=== PATIENT | female | born 1945 | race Caucasian/White ===

== ENCOUNTER 2024-05-12 15:26 | Emergency (ER) | payer MEDICARE, OTHER, SELFPAY ==
--- OUTSIDE RECORDS SUMMARY | 2024-05-12 15:36 | XMS_ITS | Clinical Summary ---
Author Organization [facility] Address [address] [place] [address] Care Team Providers Care Special Education Paraprofessional Name Role Phone Faith Rubio MD Primary Care Provider [phone] Salvador Merida MD Unavailable [phone] Tevin Pat MD Unavailable + Yang Murphy Unavailable Unavail Jorgito Luque MD Unavailable [phone] Allergies Active Allergy Reactions Criticality Noted Date Comments Bacitracin Blisters High Gramicidin D Blisters High Neomycin Blisters High Hyxkvajs-Qnzijsfebw-Lj lymyxin Blisters High Reaction: BLISTERS, Polymyxin B Blisters High Semaglutide Nausea & Vomiting Low 02/05/2024 Would be a candidate for injected semaglutide or Mounjaro in the future if affordable Medications cyanocobalamin (Vitamin B-12) 1,000 mcg tabletIndications: Type 2 diabetes mellitus with microalbuminuria, without long-term current use of insulin (HCC) Take 1 tablet (1,000 mcg total) by mouth daily 4 Active cholecalciferol (VITAMIN D-3) 50,000 unit capsule Take 1 capsule (50,000 Units total) by mouth once a week Active atorvastatin (LIPITOR) 40 mg tabletIndications: Type 2 diabetes mellitus with microalbuminuria, without long-term current use of insulin (HCC),Multiple-typ e hyperlipidemia Take 1 tablet (40 mg total) by mouth daily 90 tablet 1 4 02/05/20 25 Active citalopram (CeleXA) 20 mg tabletIndications: Mood disorder Take 1 tablet (20 mg total) by mouth daily with breakfast 90 tablet 1 4 02/05/20 25 Active famotidine (PEPCID) 20 mg tabletIndications: gastroesophageal reflux disease Take 1 tablet (20 mg total) by mouth 2 (two) times a day 180 tablet 2 4 Active lisinopriL (PRINIVIL,ZESTRIL) 10 mg tabletIndications: Hypertension complicating diabetes (HCC) Take 1 tablet (10 mg total) by mouth daily 90 tablet 1 4 Active metFORMIN (GLUCOPHAGE) 500 mg tabletIndications: Type 2 diabetes mellitus with microalbuminuria, without long-term current use of insulin (HCC) Take 1 tablet (500 mg total) by mouth 2 (two) times a day with meals 180 tablet 2 4 02/05/20 25 Active carvediloL (COREG) 12.5 mg tabletIndications: Type 2 diabetes mellitus with microalbuminuria, without long-term current use of insulin (HCC),Hypertension complicating diabetes (HCC) Take 0.5-1 tablets (6.25-12.5 mg total) by mouth 2 (two) times a day with meals If blood pressure is below 110/70 cut back to half tablet twice daily otherwise continue 1 whole tablet twice daily 180 tablet 1 4 Active Active Problems Problem Noted Date Diagnosed Date Vitamin D deficiency 01/22/2024 Overview (01/22/2024): Vitamin-D level low January 17, 2024 =19 Low started on vitamin-D 3 protocol 50,000 weekly Osteoporosis, idiopathic 09/21/2023 Overview (09/21/2023): New Dx: August 2023 AP LUMBAR SPINE L1-L4:Total BMD is 0.785 g/cm2 T-score is -2.4 LEFT HIP:Total BMD is 0.743 g/cm2 T-score is -1.6 Femoral neck BMD is 0.550 g/cm2 T-score is -2.7 Lung nodule, solitary 06/15/2022 Overview (06/15/2022): 06/14/2022: Low-dose chest CT lung cancer screening (+) May 2022 with a single pulmonary nodule plan recheck six-month LUNG NODULES: 7 mm pleural medial right upper lobe nodule (84). 3 mm pleural right middle lobe nodule (189). 3 mm posterior right lower lobe nodule (162). 4 mm minor fissure nodule (124). Small cluster of nodules within the anterior left upper lobe with largest nodule measuring 4 mm (86). 4 mm central left upper lobe nodule (18). 4 mm left lower lobe nodule (142). Multiple other smaller nodules are also noted bilaterally. OTHER: Minimal atelectasis or scarring within the lingula. No pleural effusion or pneumothorax. No mediastinal or hilar lymphadenopathy. The heart is normal in size with moderate coronary calcification. Ectasia of the ascending aorta measuring 3.8 cm. No axillary lymphadenopathy. No chest wall mass is seen. Images of the upper abdomen demonstrate a tiny hiatal hernia. Bone windows demonstrate no suspicious lytic or sclerotic lesion. No acute fracture seen. IMPRESSION: 1. Pulmonary nodules measuring up to 7 mm. Lung-RADS v1.1 category 3: Probably benign. Recommendation: Low dose CT of chest in 6 months. 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 Arthritis 04/30/2017 Class 1 obesity with serious comorbidity and body mass index (BMI) of 34.0 to 34.9 in adult 11/01/2016 Mood disorder 07/13/2013 Overview (06/01/2016): Adjustment reaction with anxiety and depression Assessment & Plan (03/14/2023 3:20 PM BARREL ENDSHAKE ADJUSTER): Controlled on current doses of Wellbutrin and Citalopram. No acute findings on exam. Refills sent. Type 2 diabetes mellitus wit h microalbuminuria, without long-term current use of insulin 07/13/2013 Overview (06/03/2016): Diabetes Assessment & Plan (03/15/2023 8:11 AM BARREL ENDSHAKE ADJUSTER): Last HbA1c in April was 6.8, recent fasting sugar on labs 2 weeks ago was 150. Up 10 lbs in last 9 months. No acute symptoms or findings on exam. Check HbA1c today. Will refill Metformin 500mg BID. Discussed low carb diet in detail. Educated on AHA recommendations for heart healthy exercise. Keep follow up and repeat labs in 5 months. Hypertension complicating diabetes 07/13/2013 Overview (06/03/2016): Benign essential hypertension Assessment & Plan (03/14/2023 3:23 PM BARREL ENDSHAKE ADJUSTER): BP stable in office today on current therapy. No acute findings on exam. Continue current regimen and low salt diet. 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 Overview (06/03/2016): Combined hyperlipidemia Assessment & Plan (03/14/2023 3:24 PM BARREL ENDSHAKE ADJUSTER): Last LDL 2 weeks ago was WNL, taking atorvastatin as rxd. Will refill in office today. Patel's esophagus 07/13/2013 Overview (12/14/2020): Barretts esophagus found on EGD with Dr. Murphy 2000, (-) EGD Dr. Harper 2015, (-) EGD Dr. Chávez 2020 Prilosec discontinued 12/14/2020 for p.r.n. use Pepcid Hearing loss 11/28/2011 Overview (06/03/2016): Hearing loss Resolved Problems Problem Noted Date Diagnosed Date Resolved Date Screening for colon cancer 05/08/2017 1 Overview (05/08/2017): Added automatically from request for surgery [id number] Immunizations Immunization Administration Dates Next Due Influenza, Quadrivalent, Hig h Dose, Preservative Free, Intrr 12/06/2019 Influenza, Quadrivalent, Spl it, Intramuscular 05/03/2016 Influenza, Quadrivalent, Spl it, Preservative Free, Intramuscular 02/09/2021 Influenza, Split 03/15/2013 Influenza, Trivalent, High D ose, Split, Preservative Free, Intramuscular 02/05/2024,11/21/2018,02/12/2018 Influenza, Trivalent, IM (MDV) 03/13/2014,2013 [place] (J&J) SARS-CoV-2 Vaccination 05/02/2020 Pneumococcal Conjugate PCV 13 03/13/2014 Pneumococcal Polysaccharide PPV23 11/02/2016, Tdap 05/03/2016,10/20/2006 ZOSTER Recombinant 11/21/2018,07/18/2018 Surgical History Surgery Date Site/Laterality Comments TUBAL LIGATION 02/27/1974 - 02/26/1975 Bilateral tubal ligation CHOLECYSTECTOMY 02/27/1974 - 02/26/1975 Cholecystectomy OTHER SURGICAL HISTORY 02/27/2011 - 02/27/2012 Obesity (BMI 30.0-39.9): OTHER SURGICAL HISTORY 02/28/2012 - 02/26/2013 Tobacco use: TOTAL KNEE ARTHROPLASTY 02/28/2012 - 02/26/2013 Right COLONOSCOPY 02/27/2007 - 02/27/2008 COLONOSCOPY 05/25/2017 (-) Dr. Harper sigmoid diverticulosis found ESOPHAGOSCOPY / EGD 10/22/2013 (+) Patel's Dr. Murphy ESOPHAGOSCOPY / EGD 10/18/2016 (-) Patel's Dr. Harper GERD seen, due again in 2019 ESOPHAGOSCOPY / EGD 07/02/2020 (-) REIDEL, 2 cm HH, Bx (-), no further EGD for Patel's needed Medical History Medical History Date Comments Hx Other Medical Obesity (BMI 30 .0-39.9); Comments: Faith Rubio MD; Outcome: Resolved from Problem List Hx Other Medical Tobacco use; Co mments: Faith Rubio MD; Outcome: Resolved from Problem List Anxiety Obesity Tobacco abuse 1/2 -2 ppd since age 17 Elevated cholesterol Hypertension Menopausal state 5 para 4 abortus 1 Metabolic syndrome Osteopenia Patel esophagus Colon polyp GERD (gastroesophageal reflux disease) Type 2 diabetes mellitus (HCC) Family History Medical History Relation Name Comments Heart attack Father Prostate cancer Father Breast cancer Mother Diabetes Mother Relation Name Status Comments Father Mother Social History Tobacco Use Types Packs/Day Years Used Date Smoking Tobacco: Every Day Cigarettes 1.5 65.2 Started: 1959 Smokeless Tobacco: Never Tobacco Cessation:Ready to Q uit: Not Asked; Counseling Given: Not Answered Alcohol Use Standard Drinks/Week Comments No 0 (1 standard drink = 0.6 oz pur e alcohol) PHQ-2 Answer Date Recorded PHQ-2 Total Score (If total score is 3 or more points, staff should administer the PHQ-9) 0 08/03/2023 Comments No Sex and Gender Information Value Date Recorded Sex Assigned at Not on file Legal Sex Female 4:42 PM BARREL ENDSHAKE ADJUSTER Gender Identity Not on file Sexual Orientation Not on file Occupation Industry Job Start Date Job End Date retired Not on file Not on file Not on file Obstetrics History Last Filed Vital Signs Vital Sign [place] Time Taken Comments Blood Pressure 118/72 02/05/2024 2:53 PM BARREL ENDSHAKE ADJUSTER Pulse 70 02/05/2024 2:53 PM BARREL ENDSHAKE ADJUSTER Temperature 36.5 C (97.7 F) 02/05/2024 1:56 PM BARREL ENDSHAKE ADJUSTER Respiratory Rate 16 02/05/2024 1:56 PM BARREL ENDSHAKE ADJUSTER Oxygen Saturation 94% 02/05/2024 1:56 PM BARREL ENDSHAKE ADJUSTER Inhaled Oxygen Concentration - - Weight 91.4 kg (201 lb 6.4 oz) 02/05/2024 1:56 P M BARREL [employer]SHAKE ADJUSTER Height 167.6 cm (5' 6 ) 02/05/2024 1:56 PM BARREL ENDSHAKE ADJUSTER Body Mass Index 32.51 02/05/2024 1:56 PM BARREL ENDSHAKE ADJUSTER Plan of Treatment Health Maintenance Due Date Last Done Comments Dilated Eye Exam 1945 Covid-19 Vaccine (2023-03 5 season) 2023 02/09/2021, 05/02/2020 Hemoglobin A1C 07/21/2024 01/22/2024, 06/29, 05/10/2022, Additional history exists Lipid Panel 07/26/2024 07/27/2023, 01/28, 04/19/2016, Additional history exists Depression Screening 08/02/2024 08/03/2023, 11/17/2021, 06/12/2020, Additional history exists Fall Risk Assessment 08/02/2024 08/03/2023, 11/17/2021, 07/02/2020, Additional history exists Foot Exam 08/02/2024 08/03/2023 Well Visit 65+ 08/02/2024 08/03/2023, 10/29, 06/12/2020, Additional history exists Lung Cancer Screening 09/21/2024 09/21/2023, 023 Albumin Creatinine Ratio, Urine 01/21/2025 01/22/2024, 07/27/2023, 02/22/2023, Additional history exists eGFR 01/21/2025 01/22/2024, 06/29, 02/22/2023, Additional history exists Osteoporosis Screening-Bone Density Scan 09/20/2025 09/21/2023 DTaP/Tdap/Td Vaccine (3 - Td or Tdap) 05/03/2026 05/03/2016, 10/20/2006 Hepatitis C Screening Completed 09/27/2016 Hepatitis B Screening Completed 10/01/2016 Pneumococcal vaccine 65+ Completed 017, 03/13/2014, 12/28/2011 Colon Cancer Screening-CT Colonography Discontinued 05/25/2017 Colon Cancer Screening-Colonoscopy Discontinued 05/25/2017 Colon Cancer Screening-DNA Stool Discontinued 05/26/19 18 Colon Cancer Screening-FIT Discontinued 05/25/2017 Colon Cancer Screening-FOBT Discontinued 05/25/2017 Colon Cancer Screening-Sigmoidoscopy Discontinued 05/25/2017 Colorectal Cancer Screening Discontinued Zoster Vaccine Completed 11/21/2018, 07/18/2018 Breast Cancer Screening-Mammogram Discontinued 09/21/2023, 05/18/2022, 12/07/2020, Additional history exists Influenza Vaccine Completed 02/05/2024, , 12/06/2019, Additional history exists Procedures Procedure Name Priority Date/Time Associated Diagnosis Comments EGFR Routine 01/22/2024 8:56 AM BARREL ENDSHAKE ADJUSTER Type 2 diabetes mellitus with microalbuminuria, without long-term current use of insulin (HCC) HEMOGLOBIN A1C Routine 01/22/2024 8:56 AM BARREL ENDSHAKE ADJUSTER Type 2 diabetes mellitus with microalbuminuria, without long-term current use of insulin (HCC) ALBUMIN CREATININE RATIO, URINE Routine 01/22/2024 8:56 AM BARREL ENDSHAKE ADJUSTER Type 2 diabetes mellitus with microalbuminuria, without long-term current use of insulin (HCC) CT LUNG CANCER SCREENING Schedule Routine, Read Routine (OP Routine) 09/21/2023 9:26 AM CDT Nicotine dependence, cigarettes, uncomplicated DEXA AXIAL SKELETON BONE DENSITY 1 OR MORE SITES Schedule Routine, Read Routine (OP Routine) 09/21/2023 9:10 AM CDT Menopause SCREENING MAMMOGRAM BILATERAL W DEREJE Schedule Routine, Read Routine (OP Routine) 09/21/2023 8:50 AM CDT Encounter for screening mammogram for breast cancer LIPID PANEL Routine 07/27/2023 8:40 AM CDT Type 2 diabetes mellitus with microalbuminuria, without long-term current use of insulin (HCC) Hypertension complicating diabetes (HCC) COLONOSCOPY 05/25/2017 11:14 AM CDT from Last 3 Months or Most Recently Relevant to Health Maintenance Results * eGFR (01/22/2024 8:56 AM BARREL ENDSHAKE ADJUSTER) eGFR 72 >=60 mL/min/1. 73 m2 Comment: Interpretive Data Reference Interval Normal >/= 90 mL/min/1.73m2 Mildly decreased* 60 - 89 mL/min/1.73m2 Mildly to moderately decreased 45 - 59 mL/min/1.73m2 Moderately to severely decreased 30 - 44 mL/min/1.73m2 Severely decreased 15 - 29 mL/min/1.73m2 Kidney Failure < 15 mL/min/1.73m2 *Relative to young adult level Estimated glomerular filtration rate is determined by the 2020 CKD-EPI equation recommended by the National Kidney Foundation (A Unifying Approach to GFR Estimation: Recommendations of the NKF-ASK Task Force on Reassessing the Inclusion of Race in Diagnosing Kidney Disease, JASN 2020). The CKD-EPI equation should not be used for patients with unstable renal function and has not been validated in children and those over 70. Current interpretive data was last reviewed 2020. Testing performed by: [facility], [address] [place] [address], [place]., [address] Blood 01/22/2024 8:56 AM BARREL ENDSHAKE ADJUSTER 01/22/2024 4:25 PM BARREL ENDSHAKE ADJUSTER us Faith Rubio MD LAB BLOOD ORDERABLES Final Result Performing Organization Address [facility] Co de Phone Number ERIKA [address] [facility] [place] [address] * (ABNORMAL) Albumin Creatinine Ratio, Urine (01/22/2024 8:56 AM BARREL ENDSHAKE ADJUSTER) Albumin Ur 232.5 mg/L Comment: Interpretive Data No reference range established. Current interpretive data was last revised 2018. Testing performed by: [facility], [address] [place] [address]., [address] Creatinine Ur 173.4 mg/dL ERIKA Comment: Interpretive Data No reference range established. Current interpretive data was last revised 2018. Testing performed by: [facility], [address] [place] [address]., [address] Albumin Creatinine Ratio, Ur 134(H) 1 - 29 mg/g ERIKA Comment:Testing performed by : [facility], [address] [place] [address]., [address] Urine 01/22/2024 8:56 AM BARREL ENDSHAKE ADJUSTER 01/22/2024 3:55 PM BARREL ENDSHAKE ADJUSTER us Faith Rubio MD LAB URINE ORDERABLES Final Result Performing Organization Address [facility] de Phone Number ERIKA [address] [facility] [place] [address] * (ABNORMAL) Hemoglobin A1c (01/22/2024 8:56 AM BARREL ENDSHAKE ADJUSTER) Hgb A1C 6.6(H) 4.0 - 5.6 % Comment:Testing performed by : [address] [address] Estimated Average Glucose 143 mg/dL ERIKA Comment: The ADA recommends reporting an estimated Average Glucose (eAG) with all Hemoglobin A1c results using the equation derived from a study of 507 normal and diabetic adults. Minority populations were underrepresented and children were not included. (Diabetes Care 31:6082-1148, 2008). The eAG is not equivalent to a fasting glucose. Testing performed by: [facility], [address] [place] [address], [place]., [address] Blood 01/22/2024 8:56 AM BARREL ENDSHAKE ADJUSTER 01/22/2024 3:53 PM BARREL ENDSHAKE ADJUSTER us Faith Rubio MD LAB BLOOD ORDERABLES Final Result Performing Organization Address City/State/[facility] Co de Phone Number ERIKA [address] [facility] [place] [address] * CT Lung Cancer Screening (09/21/2023 9:26 AM CDT) Anatomical Region Laterality Modality Chest N/A Computed Tomogra phy 09/21/2023 10:4 3 AM CDT Narrative 09/21/2023 10:59 AM CDT EXAM DESCRIPTION: CT LUNG CANCER SCREENING REASON FOR STUDY: Screening CT of the chest in a current smoker with a 90 pack year smoking history. Additional history: None. TECHNIQUE: Low dose CT scan of the chest was performed without intravenous contrast using helical scanning technique. The exam extends from the lung apices through the lung bases. Automatic exposure control was used as a dose optimization technique. NOTE: This study was performed for the specific purposes of lung cancer screening and is not an alternative to diagnostic chest CT. RADIATION DOSE: CT dose index volume (CTDIvol) = 2.47 mGy COMPARISON: 06/14/2022 FINDINGS: SMOKING RELATED LUNG DISEASE: There are mild emphysematous changes of lungs with scattered mild subsegmental atelectasis and scarring. There is mild biapical pleural thickening and scarring. There is no definite evidence of a pneumothorax. The central airways are grossly patent. There is no definite evidence of focal consolidation or pleural effusion. There are scattered calcified granulomas noted. LUNG NODULES: There is redemonstration of scattered pulmonary nodules, grossly similar to the prior study. For example, there is a stable subpleural 0.7 cm pulmonary nodule in the medial right upper lobe abutting the mediastinum (axial image 86). There is a grossly stable 0.4 cm fissural nodule along the right major fissure (axial image 130). There is a stable subpleural 0.3 cm right lower lobe pulmonary nodule (axial image 166). There is a stable subpleural 0.3 cm right middle lobe pulmonary nodule (axial image 183). There is stable 0.4 cm pulmonary nodule in the central left upper lobe (axial image 90). There is a grossly stable cluster of small pulmonary nodules in the anterior left upper lobe with the largest measuring 0.4 cm (axial image 91). There is a grossly stable 0.3 cm left lower lobe pulmonary nodule (axial image 171). CORONARY ARTERY CALCIFICATION: Present. OTHER: The heart size is normal. There is no definite evidence of a pericardial effusion. Mitral valve annular calcifications are noted. There are atherosclerotic changes of the thoracic aorta and coronary vessels. There is dilatation of main pulmonary artery measuring up to 4.1 cm, which is concerning for pulmonary arterial hypertension. There is no definite unenhanced CT evidence of mediastinal, hilar, or axillary lymphadenopathy. There are scattered subcentimeter mediastinal lymph nodes noted with largest measuring 0.7 cm in the paratracheal region (axial image 100). Calcified left hilar lymph nodes are noted. There is small hiatal hernia. The visualized portions of the bilateral adrenal glands are grossly stable and unremarkable. There are scattered colonic diverticula noted. There is mild osteopenia with degenerative changes of the spine. IMPRESSION: Redemonstration of scattered pulmonary nodules measuring up to 0.7 cm, grossly similar to the prior study. No definite evidence of a new suspicious pulmonary nodule. Mild emphysematous changes of lungs with scattered mild subsegmental atelectasis and scarring. Evidence of prior granulomatous disease. Lung-RADS category 2: Benign appearance or behavior. Recommendation: Low dose Screening CT of chest in 12 months. THIS IS AN ELECTRONICALLY VERIFIED FINAL REPORT 09/21/2023 10:59 AM - Electronically signed by Perico Gerardo D.O. PS: JAYSON Report ID: [id number] [place] Location: [id number] Procedure Note Perico Gerardo DO - 09/21/2023 EXAM DESCRIPTION: CT LUNG CANCER SCREENING REASON FOR STUDY: Screening CT of the chest in a current smoker with a90 pack year smoking history. Additional history: None. TECHNIQUE: Low dose CT scan of the chest was performed without intravenous contrast using helical scanning technique. The exam extends from the lung apices through the lung bases. Automatic exposure control was used as adose optimization technique. NOTE: This study was performed for the specific purposes of lung cancer screening and is not an alternative to diagnostic chest CT. RADIATION DOSE: CT dose index volume (CTDIvol) = 2.47 mGy COMPARISON: 06/14/2022 FINDINGS: SMOKING RELATED LUNG DISEASE: There are mild emphysematous changes oflungs with scattered mild subsegmental atelectasis and scarring. There is mild biapical pleural thickening and scarring. There is no definite evidenceof a pneumothorax. The central airways are grossly patent. There is nodefinite evidence of focal consolidation or pleural effusion. There are scattered calcified granulomas noted. LUNG NODULES: There is redemonstration of scattered pulmonary nodules, grossly similar to the prior study. For example, there is a stablesubpleural 0.7 cm pulmonary nodule in the medial right upper lobe abutting the mediastinum (axial image 86). There is a grossly stable 0.4 cm fissural nodule along the right major fissure (axial image 130). There is a stable subpleural 0.3 cm right lower lobe pulmonary nodule (axial image 166).There is a stable subpleural 0.3 cm right middle lobe pulmonary nodule (axialimage 183). There is stable 0.4 cm pulmonary nodule in the central left upperlobe (axial image 90). There is a grossly stable cluster of small pulmonary nodules in the anterior left upper lobe with the largest measuring 0.4 cm (axial image 91). There is a grossly stable 0.3 cm left lower lobepulmonary nodule (axial image 171). CORONARY ARTERY CALCIFICATION: Present. OTHER: The heart size is normal. There is no definite evidence of a pericardial effusion. Mitral valve annular calcifications are noted.There are atherosclerotic changes of the thoracic aorta and coronary vessels.There is dilatation of main pulmonary artery measuring up to 4.1 cm, which is concerning for pulmonary arterial hypertension. There is no definite unenhanced CT evidence of mediastinal, hilar, oraxillary lymphadenopathy. There are scattered subcentimeter mediastinal lymphnodes noted with largest measuring 0.7 cm in the paratracheal region (axialimage 100). Calcified left hilar lymph nodes are noted. There is small hiatal hernia. The visualized portions of the bilateral adrenal glands are grossly stable and unremarkable. There are scattered colonic diverticula noted. There is mild osteopenia with degenerative changes of the spine. IMPRESSION: Redemonstration of scattered pulmonary nodules measuring up to 0.7 cm, grossly similar to the prior study. No definite evidence of a newsuspicious pulmonary nodule. Mild emphysematous changes of lungs with scattered mild subsegmental atelectasis and scarring. Evidence of prior granulomatous disease. Lung-RADS category 2: Benign appearance or behavior. Recommendation: Low dose Screening CT of chest in 12 months. THIS IS AN ELECTRONICALLY VERIFIED FINAL REPORT 09/21/2023 10:59 AM - Electronically signed by Perico Gerardo D.O. 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 IMPRESSION: Osteoporosis. REFERENCE: Bone mineral density: T-Score: Normal (T-score above or = -1.0) Low bone mass (T-score between -1.0 and -2.5) replaces the previously used term osteopenia Osteoporosis (T-score = or below -2.5) Z-Score: Within the expected range for age (Z-score above -2.0) Below the expected range for age (Z-score is -2.0 or below) Please see below follow up recommendations. Medical evaluation for secondary causes of low bone mineral density may be appropriate. FRAX is a World Health Organization validated fracture risk assessment tool that calculates a person's 10 year probability of a major osteoporosis related fracture and hip fracture. According to the National Osteoporosis Foundation guidelines, postmenopausal women and men age 50 or older with low bone mass and a 10 year probability of a major osteoporosis related fracture = or greater than 20% or a 10 year probability of a hip fracture = or greater than 3% should be considered for pharmacological treatment for the prevention of osteoporosis. For further information, including treatment recommendations, please refer to the 2019 ISCD Official Positions (http://www.iscd.org) and the NOF's Clinician's Guide to Prevention and Treatment of Osteoporosis (http://www.nof.org/professionals/clinical-guidelines) THIS IS AN ELECTRONICALLY VERIFIED FINAL REPORT 09/21/2023 4:17 PM - Electronically signed by Samuel Roach M.D. 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 IMPRESSION: Osteoporosis. REFERENCE: Bone mineral density: T-Score: Normal (T-score above or = -1.0) Low bone mass (T-score between -1.0 and -2.5) replaces thepreviously used term osteopenia Osteoporosis (T-score = or below -2.5) Z-Score: Within the expected range for age (Z-score above -2.0) Below the expected range for age (Z-score is -2.0 or below) Please see below follow up recommendations. Medical evaluation forsecondary causes of low bone mineral density may be appropriate. FRAX is a World Health Organization validated fracture risk assessmenttool that calculates a person's 10 year probability of a major osteoporosisrelated fracture and hip fracture. According to the National OsteoporosisFoundation guidelines, postmenopausal women and men age 50 or older with low bonemass and a 10 year probability of a major osteoporosis related fracture = or greater than 20% or a 10 year probability of a hip fracture = or greaterthan 3% should be considered for pharmacological treatment for the preventionof osteoporosis. For further information, including treatment recommendations, please referto the 2019 ISCD Official Positions (http://www.iscd.org) and the NOF's Clinician's Guide to Prevention and Treatment of Osteoporosis (http://www.nof.org/professionals/clinical-guidelines) THIS IS AN ELECTRONICALLY VERIFIED FINAL REPORT 09/21/2023 4:17 PM - Electronically signed by Samuel Roach M.D. MF: [email or web address] Report ID: [id number] Reading Location: [id number] Faith Rubio MD IMG DXA PROCEDURES Final R esult * Screening Mammogram Bilateral W Dereje (09/21/2023 8:50 AM CDT) Anatomical Region Laterality Modality Breast Bilateral Mammography 09/21/2023 9:09 AM CDT Impressions 09/21/2023 9:09 AM CDT There is no mammographic evidence of malignancy. A 1 year screening mammogram is recommended. BI-RADS: 2 - Benign. The patient has been or will be contacted. The patient will be entered into a reminder system with a target due date of 1 year for her next mammogram. Electronically signed by: Libia Lugo M.D. Narrative 09/21/2023 9:09 AM CDT EXAMINATION: SCREENING MAMMOGRAM BILATERAL W DEREJE ORDERING HEALTHCARE PROVIDER: FAITH RUBIO HISTORY: Routine screening mammography. COMPARISON: 05/18/2022, 12/07/2020, 04/08/2019 TECHNIQUE: CC and MLO views of the bilateral breasts were obtained with digital technique using breast tomosynthesis with C view. Computer aided detection was utilized. FINDINGS: DENSITY: There are scattered fibroglandular elements in the bilateral breasts. BREASTS: There are benign-appearing calcifications bilaterally. There are vascular calcifications in both breasts. There are no suspicious masses, suspicious calcifications, or other suspicious findings in either breast. There has been no suspicious interval change. us Faith Rubio MD IMG MAMMO PROCEDURES Final Result * (ABNORMAL) Lipid panel (07/27/2023 8:40 AM CDT) Cholesterol 157 30 - 199 mg/dL Comment: Interpretive Data Ages < or = 19 years Acceptable: <170 mg/dL Borderline high: 170-199 mg/dL High: >or= 200 mg/dL Ages > or = 20 years Desirable: <200 mg/dL Borderline high: 200-239 mg/dL High: >or= 240 mg/dL Literature References: 1. Expert Panel on Integrated Guidelines for Cardiovascular Health and Risk Reduction in Children and Adolescents. Pediatrics 2011;128:S213 2. NCEP Expert Panel. Circulation 2004;110:227 Current Interpretive Data was last revised on 2017. Testing performed by: [facility], [address] [place] [address]., [id number] Triglycerides 225(H) <=149 mg/dL [facility] PENG Comment: Interpretive Data Ages < or = 9 years Acceptable: <75 mg/dL Borderline high: 75-99 mg/dL High: >or= 100 mg/dL Ages 10 to 20 years Acceptable: <90 mg/dL Borderline high: 90-129 mg/dL High: >or= 130 mg/dL Ages > or = 20 years Desirable: <150 mg/dL Borderline high: 150-199 mg/dL High: 200-499 mg/dL Very high: >or= 499 mg/dL Literature References: 1. Expert Panel on Integrated Guidelines for Cardiovascular Health and Risk Reduction in Children and Adolescents. Pediatrics 2011;128:S213 2. NCEP Expert Panel. Circulation 2004;110:227 Current Interpretive Data was last revised on 2017. Testing performed by: [address] [address] HDL 36(L) >=40 mg/dL [facility] Comment: Interpretive Data Ages < or = 19 years Acceptable: >45 mg/dL Borderline low: 40-45 mg/dL Low: <40 mg/dL Ages > or = 20 years Desirable: >or= 60 mg/dL Low: <40 mg/dL Literature References: 1. Expert Panel on Integrated Guidelines for Cardiovascular Health and Risk Reduction in Children and Adolescents. Pediatrics 2011;128:S213 2. NCEP Expert Panel. Circulation 2004;110:227 Current Interpretive Data was last revised on 2017. Testing performed by: [facility], [address] [place] [address]., [id number] LDL, calculated 76 <=129 mg/dL [facility] Comment: Interpretive Data Ages < or = 19 years Acceptable: <110 mg/dL Borderline high: 110-129 mg/dL High: >or= 130 mg/dL Ages > or = 20 years Optimal: <100 mg/dL Near optimal: 100-129 mg/dL Borderline high: 130-159 mg/dL High: >160 mg/dL Literature References: 1. Expert Panel on Integrated Guidelines for Cardiovascular Health and Risk Reduction in Children and Adolescents. Pediatrics 2011;128:S213 2. NCEP Expert Panel. Circulation 2004;110:227 Current Interpretive Data was last revised on 2017. Testing performed by: [address] [address] Non-HDL Cholesterol 121 mg/dL [facility] Comment: Interpretive Data Ages < or = 19 years Acceptable: <120 mg/dL Borderline high: 120-144 mg/dL High: >145 mg/dL Ages > or = 20 years When triglycerides are >200 mg/dL, Non-HDL cholesterol is a secondary target of therapy with treatment goals that are 30 mg/dL greater than the LDL cholesterol target. Literature References: 1. Expert Panel on Integrated Guidelines for Cardiovascular Health and Risk Reduction in Children and Adolescents. Pediatrics 2011;128:S213 2. NCEP Expert Panel. Circulation 2004;110:227 Current Interpretive Data was last revised on 2017. Testing performed by: [facility], [address] [place] [address]., [id number] Chol/HDL ratio 4 [facility] Comment:Testing performed by : [facility], [address] [place] [address]., [id number] Blood 07/27/2023 8:40 AM CDT 07/27/2023 11:48 AM CDT Iva Eddy NP LAB BLOOD ORDERABLES Final Resul t Performing Organization Address City/State/[facility] Co de Phone Number E[facility] [address] Department [place] [address] * COLONOSCOPY (05/25/2017 11:14 AM CDT) Anatomical Region Laterality Modality Other Narrative Procedure Note Tevin Pat MD - 05/25/2017 11:14 AM CDT [facility] Patient Name: Ruth Koehler Procedure Date: 05/25/2017 11:14 AM Date of : 1945 Admit Type: Outpatient Age: 71 Gender: Female Attending MD: Tevin Alegria M.D. Room: [facility] END[facility]COPY ROOM 2 Note Status: Finalized Procedure: Colonoscopy Indications: Screening for colorectal malignant neoplasm, Last colonoscopy: 2007 Referring MD: Faith Rubio M.D. Providers: Tevin Nichols M.D. Impression: - Non-bleeding internal hemorrhoids. - Moderate diverticulosis in the entire examinedcolon. There was no evidence of diverticular bleeding. - Two 3 to 4 mm polyps in the sigmoid colon.Resected and retrieved. Recommendation: - Discharge patient to home. - Resume previous diet. - Continue present medications. - Await pathology results. - Repeat colonoscopy in 5-10 years for surveillance(5 if adenoma). - Return to primary care physician PRN. Medicines: Monitored Anesthesia Care Complications: No immediate complications. Estimated Blood Loss: Estimated blood loss: none. Procedure: Pre-Anesthesia Assessment: - Prior to the procedure, a History and Physical was performed, and patient medications and allergieswere reviewed. The patient's tolerance of previous anesthesia was also reviewed. The risks and benefitsof the procedure and the sedation options and riskswere discussed with the patient. All questions were answered, and informed consent was obtained. Prior Anticoagulants: The patient has taken no previous anticoagulant or antiplatelet agents. ASA Grade Assessment: II - A patient with mild systemicdisease. After reviewing the risks and benefits, the patientwas deemed in satisfactory condition to undergo the procedure. The benefits, risks and alternatives of theprocedure and sedation were discussed and informed consent was obtained. All questions were answered. Please referto the signed informed consent document in the medical record. The scope was passed under direct vision.The Colonoscope [id number] was introducedthrough the anus and advanced to the the terminal ileum,with identification of the appendiceal orifice and ICvalve. The colonoscopy was performed without difficulty.The patient tolerated the procedure well. The quality of the bowel preparation was excellent. Findings: The perianal and digital rectal examinations were normal. Non-bleeding internal hemorrhoids were found during retroflexion. The hemorrhoids were small. Scattered small and large-mouthed diverticula were found in theentire colon. There was no evidence of diverticular bleeding. Normal colonand terminal ileum otherwise. Two sessile polyps were found in the sigmoid colon. The polyps were 3to 4 mm in size. These polyps were removed with a jumbo cold forceps. Resection and retrieval were complete. Electronically signed by Tevin Burger M.D. Tevin Nichols M.D. 05/25/2017 12:15:49 PM Number of Addenda: 0 Note Initiated On: 05/25/2017 11:14 AM Procedure Code(s): --- Professional --- 29381, Colonoscopy, flexible; with biopsy, single or multiple Diagnosis Code(s): --- Professional --- Z12.11, Encounter for screening for malignant neoplasm of colon K64.8, Other hemorrhoids D12.5, Benign neoplasm of sigmoid colon K57.30, Diverticulosis of large intestine without perforation orabscess without bleeding CPT copyright 2014 [employer]. All rights reserved. The codes documented in this report are preliminary and upon lab scientist reviewmay be revised to meet current compliance requirements. Recognized by the [employer] for promoting quality in endoscopy Tevin Nichols MD ENDOSCOPY PROCEDUR ES Final Result from Last 3 Months or Most Recently Relevant to Health Maintenance Insurance [facility] CHOICE [facility] HMO/PPO Address: [address] [address] [place] [address] [facility] CHOICE PLUS 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 Expl anation ADVANCE DIRECTIVE 04/22/2019 DNR ADVANCE DIRECTIVE 09/29/2010 POWER OF A [employer]TORNEY[employer] * Full Code (Latest Code Status on File) Date Activated Date Inactivated Comments 07/02/2020 12:16 PM 07/02/2020 6:05 PM * Full Code Date Activated Date Inactivated Comments 07/02/2020 12:16 PM 07/02/2020 12:16 PM * Full Code Date Activated Date Inactivated Comments 05/25/2017 10:54 AM 05/25/2017 3:03 PM Care Teams Special Education Paraprofessional Relationship Specialty Start Date End Date Faith Rubio MD PCP - General 05/27/16 Salvador Merida MD [address]QU[address] [place] [id number] Orthopedic Surgery 11/02/16 Tevin Pat MD [address] [facility] [address] [facility] [address] [place] [address] Gastroenterology 11/02/16 Yang Murphy [address] [facility] [address] [place] [address] Gastroenterology 11/02/16 Jorgito Perez MD [address] [facility] [address] [place] [address] Referring Physician Ophthalmology 01/12/18
--- OUTSIDE RECORDS SUMMARY | 2024-05-12 15:36 | XMS_ITS | Encounter Summary ---
Author Organization [facility] Address [address] [place] [address] Phone Care Team Providers Care Thermoforming Machine Operator Name Role Phone Faith Iglesias MD Primary Care Provider [phone] Salvador Merida MD Unavailable [phone] Swati Bernal Unavailable Unavailable Tevin Pat MD Unavailable + Yang Murphy Unavailable Unavail able Jorgito Perez MD Unavailable [phone] Encounter Details Date Type Department Care Team (Late st Contact Info) Description 04/26/2017 Orders Only [facility] ProviderSophia MD [address] [place] [id number] Social History Tobacco Use Types Packs/Day Years Used Date Smoking Tobacco: Every Day Cigarettes Smokeless Tobacco: Never Alcohol Use Standard Drinks/Week Comments No 0 (1 standard drink = 0.6 oz pur e alcohol) Comments No Sex and Gender Information Value Date Recorded Sex Assigned at Not on file Legal Sex Female 4:42 PM REPORTS DEVELOPER Gender Identity Not on file Sexual Orientation Not on file documented as of this encounter Plan of Treatment Not on file documented as of this encounter Procedures Procedure Name Priority Date/Time Associated Diagnosis Comments DISCHARGE LABORATORY CUMULATIVE REPORT 04/26/2017 12:00 AM REPORTS DEVELOPER documented in this encounter Results * DISCHARGE LABORATORY CUMULATIVE REPORT (04/26/2017 12:00 AM REPORTS DEVELOPER) Narrative 04/26/2017 12:00 AM REPORTS DEVELOPER Ordered by an unspecified provider. Historical Provider LAB BLOOD ORDERABLES Ninoska l Result documented in this encounter Visit Diagnoses Not on filedocumented in this encounter Care Teams Thermoforming Machine Operator Relationship Specialty Start Date End Date Faith Iglesias MD PCP - General 05/27/16 Salvador Merida MD [address] [place] [address] Orthopedic Surgery 11/02/16 Swati Bernal [address] [place] [address] Ophthalmology 11/02/16 01/11/18 Tevin Pat MD [address] [place] [address] [place] [address] Gastroenterology 11/02/16 Yang Murphy [address] [place] [address] [place] [address] Gastroenterology 11/02/16 Jorgito Perez MD [address] [place] [address] [place] [address] Referring Physician Ophthalmology 01/12/18 documented as of this encounter
--- OUTSIDE RECORDS SUMMARY | 2024-05-12 15:36 | XMS_ITS | Referral Summary ---
Author Organization [facility] Address [address] [place] [address] Care Team Providers Care Process Server Name Role Phone Faith Rubio MD Primary Care Provider [phone] Salvador Merida MD Unavailable [phone] Tevin Pat MD Unavailable + Yang Murphy Unavailable Unavail Jorgito Luque MD Unavailable [phone] Allergies Active Allergy Reactions Criticality Noted Date Comments Bacitracin Blisters High Gramicidin D Blisters High Neomycin Blisters High Lildugna-Ggzrbyzdsn-Mz lymyxin Blisters High Reaction: BLISTERS, Polymyxin B [...] 04/22/2019 Assessment & Plan (03/14/2023 3:24 PM ASSET LIABILITY ANALYST): Attempting to quit with wellbutrin, will refill in office today. Arthritis 04/30/2017 Class 1 obesity with serious comorbidity and body mass index (BMI) of 34.0 to 34.9 in adult 11/01/2016 Mood disorder 07/13/2013 Overview (06/01/2016): Adjustment reaction with anxiety and depression Assessment & Plan (03/14/2023 3:20 PM ASSET LIABILITY ANALYST): Controlled on current doses of Wellbutrin and Citalopram. No acute findings on exam. Refills sent. Type 2 diabetes mellitus wit h microalbuminuria, without long-term current use of insulin 07/13/2013 Overview (06/03/2016): Diabetes Assessment & Plan (03/15/2023 8:11 AM ASSET LIABILITY ANALYST): Last HbA1c in April was 6.8, recent [...] hypertension Assessment & Plan (03/14/2023 3:23 PM ASSET LIABILITY ANALYST): BP stable in office today on current therapy. No acute findings on exam. Continue current regimen and low salt diet. 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 Overview (06/03/2016): Combined hyperlipidemia Assessment & Plan (03/14/2023 3:24 PM ASSET LIABILITY ANALYST): Last LDL 2 weeks ago was WNL, [...] (05/08/2017): Added automatically from request for surgery [id number] Immunizations Immunization Administration Dates Next Due Influenza, [...] PPV23 11/02/2016, Tdap 05/03/2016,10/20/2006 ZOSTER Recombinant 11/21/2018,07/18/2018 Social History Tobacco Use Types Packs/Day Years [...] on file Legal Sex Female 4:42 PM ASSET LIABILITY ANALYST Gender Identity Not on file Sexual Orientation Not on file Occupation Industry Job Start Date Job End Date retired Not on file Not on file Not on file Last Filed Vital Signs Vital Sign Reading Time Taken Comments Blood Pressure 118/72 02/05/2024 2:53 PM ASSET LIABILITY ANALYST Pulse 70 02/05/2024 2:53 PM ASSET LIABILITY ANALYST Temperature 36.5 C (97.7 F) 02/05/2024 1:56 PM ASSET LIABILITY ANALYST Respiratory Rate 16 02/05/2024 1:56 PM ASSET LIABILITY ANALYST Oxygen Saturation 94% 02/05/2024 1:56 PM ASSET LIABILITY ANALYST Inhaled Oxygen Concentration - - Weight 91.4 kg (201 lb 6.4 oz) 02/05/2024 1:56 P M ASSET LIABILITY ANALYST Height 167.6 cm (5' 6 ) 02/05/2024 1:56 PM ASSET LIABILITY ANALYST Body Mass Index 32.51 02/05/2024 1:56 PM ASSET LIABILITY ANALYST Plan of Treatment Not on file Procedures Procedure Name Priority Date/Time Associated Diagnosis Comments EGFR Routine 01/22/2024 8:56 AM ASSET LIABILITY ANALYST Type 2 diabetes mellitus with microalbuminuria, without long-term current use of insulin (HCC) HEMOGLOBIN A1C Routine 01/22/2024 8:56 AM ASSET LIABILITY ANALYST Type 2 diabetes mellitus with microalbuminuria, without long-term current use of insulin (HCC) ALBUMIN CREATININE RATIO, URINE Routine 01/22/2024 8:56 AM ASSET LIABILITY ANALYST Type 2 diabetes mellitus with microalbuminuria, without [...] Maintenance Results * eGFR (01/22/2024 8:56 AM ASSET LIABILITY ANALYST) eGFR 72 >=60 mL/min/1. 73 m2 Comment: [...] was last reviewed 2020. Testing performed by: [address] [address] Blood 01/22/2024 8:56 AM ASSET LIABILITY ANALYST 01/22/2024 4:25 PM ASSET LIABILITY ANALYST us Faith Rubio MD LAB BLOOD ORDERABLES Final Result Performing Organization Address [facility] Co de Phone Number ERIKA [address] [place] [address] * (ABNORMAL) Albumin Creatinine Ratio, Urine (01/22/2024 8:56 AM ASSET LIABILITY ANALYST) Albumin Ur 232.5 mg/L Comment: Interpretive Data No reference range established. Current interpretive data was last revised 2018. Testing performed by: [address] [address] Creatinine Ur 173.4 mg/dL ERIKA Comment: Interpretive Data No reference range established. Current interpretive data was last revised 2018. Testing performed by: [address] [address] Albumin Creatinine Ratio, Ur 134(H) 1 - 29 mg/g ERIKA Comment:Testing performed by : [address] [address] Urine 01/22/2024 8:56 AM ASSET LIABILITY ANALYST 01/22/2024 3:55 PM ASSET LIABILITY ANALYST us Faith Rubio MD LAB URINE ORDERABLES Final Result Performing Organization Address City/[facility] Co de Phone Number ERIKA [address] [facility] [place] [address] * (ABNORMAL) Hemoglobin A1c (01/22/2024 8:56 AM ASSET LIABILITY ANALYST) Hgb A1C 6.6(H) 4.0 - 5.6 % Comment:Testing performed by : [facility], [address] [place] [address]., [address] Estimated Average Glucose 143 mg/dL ERIKA PENG Comment: The ADA recommends reporting an estimated Average Glucose (eAG) with all Hemoglobin A1c results using the equation derived from a study of 507 normal and diabetic adults. Minority populations were underrepresented and children were not included. (Diabetes Care 31:1967-0213, 2008). The eAG is not equivalent to a fasting glucose. Testing performed by: [facility], [address] [place] [address]., [address] Blood 01/22/2024 8:56 AM ASSET LIABILITY ANALYST 01/22/2024 3:53 PM ASSET LIABILITY ANALYST us Faith Rubio MD LAB BLOOD ORDERABLES Final Result Performing Organization Address City/State/[facility] Co de Phone Number PREETIJOYCE [phone] [place] [address] [place] [address] * CT Lung Cancer Screening (09/21/2023 9:26 [...] Perico Gerardo D.O. PS: PS Report ID: [id number] Reading Location: [id number] Procedure Note Perico Gerardo, DO - 09/21/2023 EXAM DESCRIPTION: CT LUNG [...] Perico Gerardo D.O. 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 MF: BHARGAVI Report ID: [id number] Reading Location: [id number] us Faith Rubio MD [facility] DXA PROCEDURES Final R esult * Screening [...] suspicious interval change. us Faith Rubio MD [facility] MAMMO PROCEDURES Final Result * (ABNORMAL) Lipid [...] last revised on 2017. Testing performed by: [facility], [address] [place] [address]., [address] Triglycerides 225(H) <=149 mg/dL ERIKA Comment: Interpretive Data Ages < [...] last revised on 2017. Testing performed by: [facility], [address] [place] [address]., [address] HDL 36(L) >=40 mg/dL [facility] Comment: Interpretive Data Ages < or = [...] last revised on 2017. Testing performed by: [address] [address] LDL, calculated 76 <=129 mg/dL ERIKA Comment: [...] last revised on 2017. Testing performed by: [address] [address] Non-HDL Cholesterol 121 mg/dL ERIKA Comment: Interpretive [...] last revised on 2017. Testing performed by: [address] [address] Chol/HDL ratio 4 ERIKA Comment:Testing performed by : [address] [address] Blood 07/27/2023 8:40 AM CDT 07/27/2023 11:48 AM CDT us Iva Eddy NP LAB BLOOD ORDERABLES Final Resul t ERIKA [address] Department of Laboratories [place], [place] [id number] * COLONOSCOPY (05/25/2017 11:14 AM CDT) Anatomical Region Laterality Modality Other Narrative Procedure Note Tevin Pat MD - 05/25/2017 11:14 AM CDT [facility] Patient Name: Ruth Koehler Procedure Date: 05/25/2017 11:14 AM Date of : 1945 Admit Type: Outpatient Age: 71 Gender: Female Attending MD: Tevin Alegria M.D. Room: [facility] ENDOSCOPY ROOM 2 Note Status: Finalized Procedure: [...] scope was passed under direct vision.The Colonoscope [id number] was introducedthrough the anus and advanced to [...] 11:14 AM Procedure Code(s): --- Professional --- 64204, Colonoscopy, flexible; with biopsy, single or multiple Diagnosis Code(s): --- Professional --- Z12.11, Encounter for screening for malignant neoplasm of colon K64.8, Other hemorrhoids D12.5, Benign neoplasm of sigmoid colon K57.30, Diverticulosis of large intestine without perforation orabscess without bleeding CPT copyright 2014 [employer]. All rights reserved. The codes documented in this report are preliminary and upon churn operator margarine reviewmay be revised to meet current compliance requirements. Recognized by the [employer] for promoting quality in endoscopy us Tevin Nichols MD ENDOSCOPY PROCEDUR ES Final Result from Last 3 Months or Most Recently Relevant to Health Maintenance Insurance [employer]ARE [employer] MEDICARE MEDICARE [facility] INS [place] Advance Directives For more information, please contact: [phone] Documents on File Type Date Recorded Patient Toxicologist Expl anation ADVANCE DIRECTIVE 04/22/2019 DNR ADVANCE DIRECTIVE 09/29/2010 POWER OF A [employer]TORNEY[employer]ICAL * Full Code (Latest Code Status on File) Date Activated Date Inactivated Comments 07/02/2020 12:16 PM 07/02/2020 6:05 PM * Full Code Date Activated Date Inactivated Comments 07/02/2020 12:16 PM 07/02/2020 12:16 PM * Full Code Date Activated Date Inactivated Comments 05/25/2017 10:54 AM 05/25/2017 3:03 PM Care Teams Process Server Relationship Specialty Start Date End Date Faith Rubio MD PCP - General 05/27/16 Salvador Merida MD [address] [place] [address] Orthopedic Surgery 11/02/16 Tevin Pat MD [address] [place] [address] Gastroenterology 11/02/16 Yang Murphy [address] [facility] [address] [place] [address] Gastroenterology 11/02/16 Jorgito Perez MD [address] [place] [address] Referring Physician Ophthalmology 01/12/18
--- OUTSIDE RECORDS SUMMARY | 2024-05-12 15:36 | XMS_ITS | Clinical Summary ---
Author Organization [facility] Address [address] [place] [address] Phone Care Team Providers Care Technical Sales Engineer Name Role Phone Faith Iglesias MD Primary Care Provider Social History Tobacco Use Types Packs/Day Years Used Date Smoking Tobacco: Never Assessed Comments Unknown Sex and Gender Information Value Date Recorded Sex Assigned at Not on file Legal Sex Female 11:02 AM RESIDENTIAL PROGRAM COORDINATOR Gender Identity Not on file Sexual Orientation Not on file Plan of Treatment Health Maintenance Due Date Last Done Comments DEXA Bone Density 1945 Hepatitis C Virus (HCV) Screening 1945 TdaP Immunization 1945 Pneumococcal Immunization (5 0+ years) (1 of 1 - PCV) 12/11/1995 Zoster Immunization (1 of 2) 12/11/1995 Respiratory Syncytial Virus (RSV) Immunization (Adult) (1 - 1-dose 75+ series) 2020 Influenza Immunization (#1) 2023 SARS-COV-2 Immunization ( season) 2023 02/09/2021, 05/02/2020 Hepatitis B Immunization Aged Out No longer eligible based on patient's age to complete this topic Meningococcal Immunization (ACWY) Aged Out No longer eligible b ased on patient's age to complete this topic Rotavirus Immunization Aged Out No lo nger eligible based on patient's age to complete this topic Care Teams Technical Sales Engineer Relationship Specialty Start Date End Date Faith Iglesias MD [address] [facility] [place] [address] PCP - General Internal Medicine 05/03/17
--- OUTSIDE RECORDS SUMMARY | 2024-05-12 15:36 | XMS_ITS | Continuity of Care Document ---
Author Organization [facility] Address [address] [place] [address] [address] [place] [address] Phone Care Team Providers Care Evaporator Operator Name Role Phone Malachi OD, Ag Unavailable Unavailable Allergies, Adverse Reactions, Alerts Substance Reaction Status Criticality polymyxin B Active No Information NEOMYCIN SULFATE Active No Informat ion BACITRACIN ZINC Active No Informati on bacitracin Active No Information Medications Medication Instructions Dosage Effective Dates (start - stop) Status Comments Wellbutrin XL 150 mg 24 hr tablet, extended release take 1 tablet by oral route every day 150 MG - Active metformin 500 mg tablet take 2 tablet by oral route every day with morning and evening meals 1000 MG - Active omeprazole 20 mg capsule,delayed release take 1 capsule by oral route every day 30 minutes to 1 hour before a meal 20 MG - Active citalopram 20 mg tablet take 1 tablet by oral route every day 20 MG - Active atorvastatin 40 mg tablet take 1 tablet by oral route every day 40 MG - Active lisinopril 10 mg tablet take 1 tablet by oral route every day 10 MG - Active Procedures Procedure Date No Charge Refraction SCODI, Retina Eye Exam, New Patient Eye Exam & Treatment Advance Directives Directive Yes / No Effective Date File Name No Information Encounters Encounter Description Practice Location Reason(s) For Visit Diagnoses Date Provider Providers Copied on Encounter [facility], [address] [place] [address] [address], [place], [place], [id number], [place] tel:[phone] SEC [place] Professional No Information Mar-0 4-202 0 Malachi Luong. [address] [facility], 6th Floor, [place], [address], [place]. tel:[phone] [facility], [address], [place], [place], [id number], [place] [phone] SEC [place] Professional Complete Exam (chief complaint) Age-related nuclear cataract, bilateralType 2 diabetes mellitus without complications Ocular histoplasmosi s syndrome of both eyesDry eye syndrome of bilateral lacrimal glandsEndothe lial corneal dystrophy Oct-1 9-201 7 Gabe Longoria. [address] [place], [place], [facility], . tel:[phone] Referring Provider: Faith Iglesias MD, [address], [place], [address]. tel:[phone] [facility], [address] [place] [address] [address], [place], [place], [id number], [place] tel:[phone] SEC [facility] Professional No Information Nov-0 3-201 7 Perez Jorgito. [address] [facility], [facility] [place], [id number], . tel:[phone] [facility], [address], [place], [place], [id number], [phone] SEC [facility] Professional No Information 7-200 8 [place] Bridges. [address] [facility], [address], [place], [place], [id number], [place]. tel:[phone] Referring Provider: Faith Iglesias MD, [address], [place], [address]. tel:[phone] Family History Family Member Type Diagnosis Age At Onset Brother Problem (finding) diabetes mellitus type 2 Brother Problem (finding) degenerative disorder o f macula Mother Problem (finding) diabetes mellitus type 2 Payers Payer name Insurance type Covered green party ID Authoriza tion(s) No Information Social History Type Description Quantity Date Captured Comments Alcohol Use Details Unknown Caffeine Use Details Unknown Tobacco Use Status Smoking Status No Information Sex Female Chief Complaint And Reason For Visit No Information Reason For Referral Reason For Referral No Information Plan Of Treatment Date Type Action Status Goal Tobacco cessation counseling completed History Of Present Illness Encounter Date Complaint History Of Prese nt Illness Complete Exam The 71 year old female presents for Complete Exam in the right eye and left eye. Hx of CAT OU and Histoplasmosis OU. Pt reports she has never had any eye injuries, Sx or Dx. Pt is NIDDM x 5 yrs. PCP follows DM. Pt reports she doesn't take her BS and doesn't know A1C, but it is well controlled. Pt reports she uses OTC AFT for TREMAINE PRN OU, when working on computer a lot. Pt reports she has noticed glare from oncoming headlights and glare from any lights bother her, OU, x 1 yr, and gradually getting worse. Pt reports she sees well, OU, DV and NV, with glasses on. Pt reports no pain, irritation or discomfort today, OU. Functional Status Date Functional Assessmen t No Information Instructions Date Instruction Additional Infor daisy Age-related nuclear cataract, bilateral - Educational material provided Related to Age-related nuclear cataract, bilateral Impression/Plan - Di scussed cataracts with pt and treatment options. Not visually significant at this time. Related to Age-related nuclear cataract, bilateral Impression/Plan - Di abetes type II: no background retinopathy, no signs of neovascularization noted. Discussed ocular and systemic benefits of blood sugar control. DM letter sent to Dr Iglesias. Return to clinic in 1 year for complete DM exam or sooner with problems. Related to Type 2 diabetes mellitus without complications Impression/Plan - Co ndition appears to be stable, normal OCT MAC. Will continue to monitor. 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 Related to Dry eye syndrome of bilateral lacrimal glands Impression/Plan - Co ndition appears stable, treatment not needed at this time. Will continue to monitor. 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
[2024-05-12 15:39] VITALS: BP 126/46; PULSE 101; RESP 20; TEMP 36.9; O2SAT 95
--- NOTE | 2024-05-12 15:42 | ED_ITS ---
HPI - Female Genitourinary General Chief complaint: Urogenital-Female Stated complaint: Urinary Problem/Fever Time Seen by Provider: 05/12/24 15:42 Source: patient, family, RN notes reviewed and old records reviewed Mode of arrival: ambulatory Limitations: no limitations History of Present Illness HPI Narrative: 78-year-old female who presents to [facility] with of urinary symptoms which includes burning with urination and some low back pain with urinary frequency and voiding in small amounts for the past 4 days. Patient reports that she has had intermittent fevers with highest noted of 101F this morning.. Patient reports no nausea or vomiting or diarrhea, Patient reports that she has not taken any OTC medication for her symptoms. MD elicited complaint: UTI Pertinent past history: other (UTI) Onset (ago): day(s) (4 days) Location of symptoms: urethra and low back Severity: moderate Quality of pain: burning Vaginal discharge: none Vaginal bleeding: none Treatment prior to arrival: none Related Data Home Medications ?Medication ?Instructions ?Recorded ?Confirmed ?Last Taken ?Type atorvastatin 40 mg tablet mg 05/12/24 Unknown History carvedilol 12.5 mg tablet mg 05/12/24 Unknown History citalopram 20 mg tablet mg 05/12/24 Unknown History famotidine 20 mg tablet mg 05/12/24 Unknown History lisinopril 10 mg tablet mg 05/12/24 Unknown History metformin 500 mg tablet mg 05/12/24 Unknown History vitamin b12 05/12/24 Unknown History Allergies Allergy/AdvReac Type Severity Reaction Status Date / Time bacitracin (From Neosporin Allergy Blister Verified 05/12/24 16:11 ([id number])) neomycin (From Neosporin Allergy Blister Verified 05/12/24 16:11 ([id number])) polymyxin B (From Neosporin Allergy Blister Verified 05/12/24 16:11 ([id number])) Review of Systems Review of Systems: CONSTITUTIONAL: Reports fever, chills, or sweats. CARDIOVASCULAR: Denies chest pain, palpitations, or edema. RESPIRATORY: Denies cough or dyspnea. GASTROINTESTINAL: Denies abdominal pain, nausea, vomiting, or diarrhea. GENITOURINARY: Reports dysuria, frequency, urgency. Denies flank pain or hematuria. SKIN: Denies rash or itching. MUSCULOSKELETAL: Reports some low back pain or myalgia. Denies CVA tenderness NEUROLOGIC: Denies headache All systems reviewed & are unremarkable except as noted in HPI and below PMFSH Past Medical History Medical History (Updated 05/13/24 @ 22:33 by Samira Santiago NP) Urinary tract infection GERD (gastroesophageal reflux disease) Anxiety Diabetes Hyperlipidemia Hypertension Social History Social History (Updated 05/13/24 @ 22:25 by Samira Santiago NP) Smoking status: Current every day smoker Tobacco type: cigarettes Alcohol intake: current Alcohol use details: social Substance use type: does not use Gender identity (if verbalized by the patient): Female Comments At time of signature, agree with nursing past medical, surgical, social and family history. There is no relevant family history pertinent to the presenting complaint Exam Narrative: GENERAL: Well-appearing, well-nourished, and in no acute distress. HEAD: Normocephalic, atraumatic. NECK: Supple.no lymphadenopathy CHEST: Clear to auscultation. No respiratory distress. SAO2 95% on room air HEART: Regular rate and rhythm. No murmur heard. Normal peripheral pulses. ABDOMEN: Soft, nontender, nondistended, normal active bowel sounds. No CVA tenderness. urinary burning frequency voiding in small amount, low back discomfort EXTREMITIES: Normal range of motion. No edema. SKIN: Warm, dry, no rash. NEURO: No focal deficits. Alert and oriented x3. Course Course Emergency Course: Patient is aware of diagnosis, understands and agrees to treatment plan.? Anticipatory guidance given.? Patient agrees to follow-up as directed and is aware of reasons to seek care at the emergency department. Portions of this record may have been created with voice recognition software Level of Care: Express Care Visit Vital Signs Vital signs: Vital Signs Temperature 36.9 C 05/12/24 15:39 Pulse Rate 101 H 05/12/24 15:39 Respiratory Rate 20 05/12/24 15:39 Blood Pressure 126/46 L 05/12/24 15:39 Pulse Oximetry 95 05/12/24 15:39 Oxygen Delivery Room Air 05/12/24 15:39 Temperature 36.9 C 05/12/24 15:39 Pulse Rate 101 H 05/12/24 15:39 Respiratory Rate 20 05/12/24 15:39 Blood Pressure 126/46 L 05/12/24 15:39 Pulse Oximetry 95 05/12/24 15:39 Oxygen Delivery Room Air 05/12/24 15:39 MDM - Female Genitourinary MDM Narrative Medical decision making narrative: Exam findings and UA show no acute concerns or changes; patient is non-toxic appearing and is in no distress.? Patient is appropriate for outpatient treatment and follow-up. Differential Diagnosis Differential diagnosis: Likely urinary tract infection, cystitis and other (dysuria, low back discomfort) Lab Data Attestation: I reviewed the patient's lab results. Lab results narrative: urine dip:yellow cloudy in appearance, glucose neg, ketones negative, Bilirubin negative, specific gravity 1.020, Ph 6, Protein 2+, Blood 2+ urobilinogen 1.0, nitrite positive, leukocytes 2+ Labs: Lab Results 05/12/24 Range/Units 15:50 POC Urine Color Yellow POC Urine Clarity Cloudy POC Urine pH 6.0 POC Ur Specif Grulla 1.020 POC Urine Protein 2+ (Negative) POC Ur Glucose (UA) Negative (Negative) POC Urine Ketones Negative (Negative) POC Urine Blood 2+ (Negative) POC Urine Nitrite Positive (Negative) POC Urine Bilirubin Negative (Negative) POC Urine Urobilinogen 1.0 POC U Leukocyte Esteras 2+ (Negative) reviewed Critical Care Time Critical Care Time Critical Care Time: No Discharge Plan Discharge Clinical Impression: Urinary tract infection Qualifiers: Urinary tract infection type: site unspecified Hematuria presence: with hematuria Qualified Code(s): N39.0 - Urinary tract infection, site not specified ; R31.9 - Hematuria, unspecified Patient Disposition: Home, Self-Care Condition: Stable Instructions: Antibiotic Form, Urinary Tract Infection in Women (ED) Additional Instructions: Increase fluids especially cranberry juice and water Avoid caffeine and carbonated beverages Antibiotic as directed Medicine as directed--cautioned it will cause your urine to be bright orange Tylenol/ibuprofen for pain or fever Follow-up with her primary care provider if further problems or concerns Recheck if you have fever over 101, nausea and vomiting. Patient Language: Kazakh Prescriptions: New amoxicillin-pot clavulanate 875-125 mg tablet 1 tablet PO Q12H Qty: 20 0RF phenazopyridine 95 mg tablet 95 mg PO TID PRN (Reason: pain) Qty: 6 0RF No Action atorvastatin 40 mg tablet metformin 500 mg tablet carvedilol 12.5 mg tablet citalopram 20 mg tablet famotidine 20 mg tablet lisinopril 10 mg tablet vitamin b12 Follow-up/Referrals: Harris,MD Faith [Primary Care Provider] - Time of Disposition: 16:46 Quality Pelzer Coma Scale Eyes: Open Verbal: Oriented and Alert Motor: Follows Commands Pelzer Coma Total Score: 15
--- NOTE | 2024-05-12 15:44 | PC.NURSE ---
in br to obtain ua spec.
[2024-05-12 15:51] LABS: EDUAAPPEAR Cloudy; EDUABILI Negative (Negative); EDUABLOOD 2+ (Negative); EDUACOLOR1 Yellow; EDUAGLUCOSE Negative (Negative); EDUAKETONE Negative (Negative); EDUALEUKO 2+ (Negative); EDUANITRATE Positive (Negative); EDUAPROTEIN 2+ (Negative)
== END 2024-05-12 16:49 | disposition home or self-care (01) ==
PROVIDERS: Emergency Provider Registered Nurse; PCP Internal Medicine Geriatric Medicine
DX: N39.0 Urinary tract infection, site not specified (principal); B96.20 Unspecified Escherichia coli [E. coli] as the cause of diseases classified elsewhere; R31.9 Hematuria, unspecified; F17.210 Nicotine dependence, cigarettes, uncomplicated; I10 Essential (primary) hypertension; E11.9 Type 2 diabetes mellitus without complications; E78.5 Hyperlipidemia, unspecified; K21.9 Gastro-esophageal reflux disease without esophagitis
CPT/HCPCS: 81003; 87086; 87186; 99213; G0463